=== PATIENT | female | born 1965 | race Caucasian/White ===

== ENCOUNTER 2020-07-03 17:18 | Emergency (ER) | payer OTHER ==
[~2020-07-03 17:18] MED LIST: BENTYL 20MG TAB20 MG PO; CYCLOBENZAPRINE5 MG PO; ONDANSETRON ODT4 MG PO; TORADOL 10 MG T10 MG PO
== END 2020-07-03 19:55 | disposition home or self-care (01) ==
LOC: ER1 17:18
DX: S06.0X0A Concussion without loss of consciousness, initial encounter (principal); S00.83XA Contusion of other part of head, initial encounter; I10 Essential (primary) hypertension; F17.200 Nicotine dependence, unspecified, uncomplicated; Z90.710 Acquired absence of both cervix and uterus; W22.8XXA Striking against or struck by other objects, initial encounter
CPT/HCPCS: 70450; 70486; 99283

== ENCOUNTER 2021-03-21 15:37 | Emergency (ER) | payer OTHER ==
[2021-03-21 17:00] LABS: HEMOGLOBIN 14.5 gm/dl (12.3-15.3); RED BLOOD COUNT 4.29 M/UL (4.00-5.10); WHITE BLOOD COUNT 8.6 K/UL (4.5-11.0)
[2021-03-21 17:16] LABS: BUN/CREATININE RATIO 13 (0-10)
[2021-03-21] MEDS ORDERED: ZOFRAN4 MG PO (18:13)
[2021-03-21] MEDS ORDERED: BENTYL 20MG TAB20 MG PO (18:13)
[2021-03-21] MEDS ORDERED: NAPROXEN500 MG PO (18:13)
== END 2021-03-21 18:46 | disposition home or self-care (01) ==
LOC: ER1 15:37
PROVIDERS: Physician Assistant Medical
DX: R10.32 Left lower quadrant pain (principal); I10 Essential (primary) hypertension; F17.210 Nicotine dependence, cigarettes, uncomplicated
CPT/HCPCS: 80053; 81001; 85025; 96374; 99284; J1885

== ENCOUNTER 2021-05-02 17:55 | Emergency (ER) | payer OTHER ==
[~2021-05-02 17:55] MED LIST changes: +LODINE CAP 300300 MG PO; +NAPROXEN500 MG PO; +PROVENTIL HFA6.7 GM INH; +ZOFRAN ODT 4 MG4 MG PO; +ZOFRAN4 MG PO
[2021-05-02 21:33] LABS: HEMOGLOBIN 15.8 gm/dl (12.3-15.3); RED BLOOD COUNT 4.65 M/UL (4.00-5.10); WHITE BLOOD COUNT 6.5 K/UL (4.5-11.0)
[2021-05-02 21:52] LABS: BUN/CREATININE RATIO 12 (0-10)
== END 2021-05-03 00:02 | disposition home or self-care (01) ==
LOC: ER1 17:55
PROVIDERS: Physician Assistant
DX: U07.1 COVID-19 (principal); Z90.710 Acquired absence of both cervix and uterus; F17.210 Nicotine dependence, cigarettes, uncomplicated; I10 Essential (primary) hypertension
CPT/HCPCS: 0240U; 71045; 80053; 85025; 87081; 87880; 99284

== ENCOUNTER → 2021-12-03 | Outpatient (CLI) | payer OTHER ==
[2021-12-03 08:54] LABS: HEMOGLOBIN 14.2 gm/dl (12.3-15.3); RED BLOOD COUNT 4.36 M/UL (4.00-5.10); WHITE BLOOD COUNT 6.2 K/UL (4.5-11.0)
[2021-12-03 09:22] LABS: BUN/CREATININE RATIO 13 (0-10)
[2021-12-04 08:12] LABS: VITAMIN D, 25-HYDROXY 38.2 ng/mL (30.0-100.0)
[2021-12-04 10:12] LABS: ANTISTREPTOLYSIN O AB <20.0 IU/mL (0.0-200.0); CREATININE, URINE 30.5 mg/dL (Not Estab.); RHEUMATOID ARTHRITIS FACTOR <10.0 IU/mL (<14.0)
== END ==
LOC: MAMO 11-16 14:30
PROVIDERS: Nurse Practitioner Family
DX: Z12.31 Encounter for screening mammogram for malignant neoplasm of breast (principal); Z00.00 Encounter for general adult medical examination without abnormal findings; E78.5 Hyperlipidemia, unspecified; I10 Essential (primary) hypertension; G47.00 Insomnia, unspecified; M25.50 Pain in unspecified joint
CPT/HCPCS: 36415; 77063; 77067; 80053; 80061; 81001; 82043; 82570; 82607; 83036; 84439; 84443; 84550; 85025; 85652; 86038; 86060; 86140; 86431

== ENCOUNTER → 2021-12-24 | Outpatient (CLI) | payer OTHER ==
[2021-12-27 22:11] LABS: THYROGLOBULIN ANTIBODY 1.3 IU/mL (0.0-0.9)
== END ==
LOC: LAB 11:40
PROVIDERS: Nurse Practitioner Family
DX: E05.90 Thyrotoxicosis, unspecified without thyrotoxic crisis or storm (principal); R79.89 Other specified abnormal findings of blood chemistry
CPT/HCPCS: 36415; 84439; 84443; 86376; 86800